=== PATIENT | male | born 1975 | race Caucasian/White ===

== ENCOUNTER 2020-01-28 23:34 | Emergency (ER) | payer SELFPAY ==
--- NOTE | 2020-01-29 00:31 | EDM.PDOCBH ---
ED HPI GENERAL MEDICAL PROBLEM - General Chief Complaint: Behavioral/Psych Stated Complaint: FEET BLISTERS Time Seen by Provider: 01/28/20 23:55 Source of Information: Reports: Patient, Family (Mother, over the phone) History Limitations: Reports: Altered Mental Status (Psychosis) - History of Present Illness INITIAL COMMENTS - FREE TEXT/NARRATIVE: Mr. Archer is a pleasant 44-year-old man with a past medical history significant for untreated presumed schizophrenia, who is now brought to the ED by the police after he created a disturbance at a [employer]. According to both the patient and his mother, whom we spoke to on the phone, he is from [place], [place] (about 440 miles from here). He states that he is homeless, and that he both hitched a ride and hiked here via [employer]. His mother tells us that he was in the [facility] care home after stealing a car, being released around 30 days ago, and that the court instructed him to undergo a psychiatric evaluation within 30 days, but it is unclear that he has done so. She believes that he has been living with a friend. The patient is somewhat agitated, stating that he is psychiatrically, medically , and spiritually "done". He states that his best friend, Rena, was murdered last night, and that he watched his friend's soul sink into the concrete, then watched his body being eaten by a baby alligator. He stated that he has been with his friend spiritually for the last 2 days. He states that the world is going to end soon at [facility]. He denies feeling suicidal or homicidal. During our conversation, the patient's mother called, and reassured him that Rena is fine. She told him that he is sick, and that he needs to get help. The patient acknowledged that he might be crazy, but did not want her to discount what he had seen. The patient states that he was psychiatrically hospitalized about 10 years ago for suicidal ideation, then a second time about 11 months ago, for 2 weeks, at the [facility], in [place], [place]. He states that they attempted to medicate him, but he refused. The patient states that his feet are really sore, otherwise, he denies recent fever, chills, sore throat, ear pain, nasal or sinus congestion, cough, dyspnea , chest pain, palpitations, nausea, vomiting, constipation, diarrhea, abdominal pain, urinary symptoms, recent weight gain or weight loss, recent bloody bowel movements or black bowel movements, recent joint aches, headaches, or rashes. Here in the ED, the patient's initial BP is found to be elevated at 159/91, with tachycardia of 104 bpm, otherwise, he is afebrile, saturating 97% on room air. The patient does not have a PCP or Psychiatrist. - Related Data Allergies Allergy/AdvReac Type Severity Reaction Status Date / Time No Known Allergies Allergy Verified 01/28/20 23:51 Past Medical History Musculoskeletal History: Reports: Fracture (left leg) Psychiatric History: Reports: Schizophrenia (presumed, untreated) - Past Surgical History HEENT Surgical History: Reports: Oral Surgery (wisdom teeth extraction) GI Surgical History: Reports: Appendectomy Musculoskeletal Surgical History: Reports: ORIF (left leg) Dermatological Surgical History: Reports: Skin Graft (bilateral legs) Social & Family History - Tobacco Use Smoking Status *Q: Current Every Day Smoker Years of Tobacco use: 23 Packs/Tins Daily: 0.5 - Alcohol Use Alcohol Use History: Yes Alcohol Use Frequency: Socially (occasionally to excess) - Recreational Drug Use Recreational Drug Use: Yes Drug Use in Last 12 Months: Yes Recreational Drug Type: Reports: Amphetamines (Speed) (last took mid-January 2020), LSD (Acid) (last took around 1994), Methamphetamine (last snorted, smoked Oct 2019), Psilocybin (Mushrooms) (last ate around Sep 2019), Other (see below) ( Last took in excess Oct 2019) - Living Situation & Occupation Living situation: Reports: Single, Other (Homeless) Occupation: Unemployed ED ROS GENERAL - Review of Systems Review Of Systems: Comprehensive ROS is negative, except as noted in HPI. ED EXAM, BEHAVIORAL HEALTH - Physical Exam Exam: See Below Exam Limited By: No Limitations (cooperative with exam) General Appearance: Alert, WD/WN, No Apparent Distress Eye Exam: Bilateral Eye: EOMI, Normal Inspection Ears: Normal External Exam, Hearing Grossly Normal Nose: Normal Inspection Throat/Mouth: Normal Inspection, Normal Lips, Normal Voice, No Airway Compromise Head: Atraumatic, Normocephalic Neck: Normal Inspection, Full Range of Motion Respiratory/Chest: No Respiratory Distress, Lungs Clear, Normal Breath Sounds, No Accessory Muscle Use Cardiovascular: Normal Peripheral Pulses, Regular Rate, Rhythm, No Edema, No Gallop, No JVD, No Murmur, No Rub GI/Abdominal: Normal Bowel Sounds, Soft, Non-Tender, No Organomegaly, No Distention, No Abnormal Bruit, No Mass (Male) Exam: Deferred Rectal (Males) Exam: Deferred Back Exam: Normal Inspection, Full Range of Motion, NT Extremities: Normal Range of Motion, Normal Capillary Refill, Other (2+ pitting pretibial edema on the right, 1+ pitting pretibial edema on the left, but the left leg is scarred with skin grafts. There is hyperpigmentation consistent with chronic venous stasis changes to both legs. There are calluses and blisters to the soles of both feet. The patient's body and extremities feel cold, likely from exposure.) Neurological: Alert, No Motor/Sensory Deficits, Oriented x 3 Psychiatric: Agitated (mild), Visual Hallucinations (seeing friend's soul sink into the concrete, then watch a baby alligator eat his body), Other (Delusions of the world going to end in [facility] soon) Skin Exam: Dry, Intact, No rash, Cool EKG INTERPRETATION EKG Date: 01/29/20 Time: 00:36 Rhythm: NSR Rate (Beats/Min): 78 Page: Normal P-Wave: Present QRS: RBBB (incomplete) ST-T: Normal QT: Normal Comparison: NA - No Prior EKG COURSE, BEHAVIORAL HEALTH COMP - Course Vital Signs: Last Vital Signs Temp 36.3 C 01/28/20 23:47 Pulse 104 H 01/28/20 23:47 Resp 18 01/28/20 23:47 BP 159/91 H 01/28/20 23:47 Pulse Ox 97 01/28/20 23:47 Orders, Labs, Meds: Active Orders 24 hr Category Date Time Status EKG Documentation Completion [RC] STAT Care 01/29/20 00:24 Active Laboratory Tests 01/29/20 01/29/20 01/29/20 Range/Units 00:40 00:40 00:40 WBC 8.43 (4.23-9.07) K/mm3 RBC 5.44 (4.63-6.08) M/mm3 Hgb 15.9 (13.7-17.5) gm/dl Hct 45.9 (40.1-51.0) % MCV 84.4 (79.0-92.2) fl MCH 29.2 (25.7-32.2) pg MCHC 34.6 (32.2-35.5) g/dl RDW Std Deviation 41.7 (35.1-43.9) fL Plt Count 282 (163-337) K/mm3 MPV 9.6 (9.4-12.3) fl Neutrophils % (Manual) 56 (40-60) % Band Neutrophils % 1 (0-10) % Lymphocytes % (Manual) 31 (20-40) % Atypical Lymphs % 0 % Monocytes % (Manual) 10 (2-10) % Eosinophils % (Manual) 1 (0.8-7.0) % Basophils % (Manual) 1 (0.2-1.2) Platelet Estimate Adequate Plt Morphology Comment Normal RBC Morph Comment Normal Sodium 140 (136-145) mEq/L Potassium 3.6 (3.5-5.1) mEq/L Chloride 103 (98-107) mEq/L Carbon Dioxide 27 (21-32) mEq/L Anion Gap 13.6 (5-15) BUN 8 (7-18) mg/dL Creatinine 0.8 (0.7-1.3) mg/dL Est Cr Clr Drug Dosing 120.40 mL/min Estimated GFR (MDRD) > 60 (>60) mL/min BUN/Creatinine Ratio 10.0 L (14-18) Glucose 106 (74-106) mg/dL Calcium 9.0 (8.5-10.1) mg/dL Magnesium 2.0 (1.8-2.4) mg/dl Total Bilirubin 0.8 (0.2-1.0) mg/dL AST 15 (15-37) U/L ALT 30 (16-63) U/L Alkaline Phosphatase 111 (46-116) U/L Total Protein 7.4 (6.4-8.2) g/dl Albumin 3.7 (3.4-5.0) g/dl Globulin 3.7 gm/dL Albumin/Globulin Ratio 1.0 (1-2) TSH 3rd Generation 1.095 (0.358-3.74) uIU/mL Salicylates 1.7 L (2.8-20) mg/dL Urine Opiates Screen (CAJLSB=380) Ur Buprenorphine Scrn (CUTOFF=10) Ur Oxycodone Screen (MBW8XW=364) Urine Methadone Screen (SHW2YM=244) Ur Propoxyphene Screen (YCTVWR=025) Acetaminophen 0 L (10-30) ug/mL Ur Barbiturates Screen (YJMZZP=979) Ur Tricyclics Screen (MKZGFI=299) Ur Phencyclidine Scrn (CUTOFF=25) Ur Amphetamine Screen (QMLDZS=378) U Methamphetamines Scrn (ZFVYPJ=951) U Benzodiazepines Scrn (ISVKGG=954) U Cocaine Metab Screen (JLQIVF=695) U Marijuana (THC) Screen (CUTOFF=50) Ethyl Alcohol 0.00 (0.00) gm% 01/29/20 Range/Units 02:38 WBC (4.23-9.07) K/mm3 RBC (4.63-6.08) M/mm3 Hgb (13.7-17.5) gm/dl Hct (40.1-51.0) % MCV (79.0-92.2) fl MCH (25.7-32.2) pg MCHC (32.2-35.5) g/dl RDW Std Deviation (35.1-43.9) fL Plt Count (163-337) K/mm3 MPV (9.4-12.3) fl Neutrophils % (Manual) (40-60) % Band Neutrophils % (0-10) % Lymphocytes % (Manual) (20-40) % Atypical Lymphs % % Monocytes % (Manual) (2-10) % Eosinophils % (Manual) (0.8-7.0) % Basophils % (Manual) (0.2-1.2) Platelet Estimate Plt Morphology Comment RBC Morph Comment Sodium (136-145) mEq/L Potassium (3.5-5.1) mEq/L Chloride (98-107) mEq/L Carbon Dioxide (21-32) mEq/L Anion Gap (5-15) BUN (7-18) mg/dL Creatinine (0.7-1.3) mg/dL Est Cr Clr Drug Dosing mL/min Estimated GFR (MDRD) (>60) mL/min BUN/Creatinine Ratio (14-18) Glucose (74-106) mg/dL Calcium (8.5-10.1) mg/dL Magnesium (1.8-2.4) mg/dl Total Bilirubin (0.2-1.0) mg/dL AST (15-37) U/L ALT (16-63) U/L Alkaline Phosphatase (46-116) U/L Total Protein (6.4-8.2) g/dl Albumin (3.4-5.0) g/dl Globulin gm/dL Albumin/Globulin Ratio (1-2) TSH 3rd Generation (0.358-3.74) uIU/mL Salicylates (2.8-20) mg/dL Urine Opiates Screen Negative (FFMTFX=427) Ur Buprenorphine Scrn Negative (CUTOFF=10) Ur Oxycodone Screen Negative (YTD9XE=043) Urine Methadone Screen Negative (KNG3RB=026) Ur Propoxyphene Screen Negative (CYZKWI=372) Acetaminophen (10-30) ug/mL Ur Barbiturates Screen Negative (PBXBAQ=123) Ur Tricyclics Screen Negative (IYMVGB=964) Ur Phencyclidine Scrn Negative (CUTOFF=25) Ur Amphetamine Screen Presumptive positive H (ZFILOR=302) U Methamphetamines Scrn Presumptive positive H (IPCATN=870) U Benzodiazepines Scrn Negative (GGYTAV=568) U Cocaine Metab Screen Negative (PSQCJT=454) U Marijuana (THC) Screen Negative (CUTOFF=50) Ethyl Alcohol (0.00) gm% Medical Clearance: 01/29/20 00:26 As above, the patient appears to be acutely psychotic with delusions and visual hallucinations. He is not suicidal or homicidal, therefore an emergency psychiatric hospitalization is probably not necessary, however, I would like to have marriage and family social worker take a look at him in the morning. I have ordered a work- up that includes blood work, a urine drug screen, and an ECG. In the meantime, we will find something for the patient to eat. 01/29/20 02:27 The patient's CBC is unremarkable. His CMP is unremarkable. His magnesium level is within normal limits at 2.0. His TSH is within normal limits at 1.095. His acetaminophen level is 0. His salicylate level is within normal limits at 1.7. His EtOH level is 0.00. The patient has not yet provided a urine sample for the urine drug screen. 01/29/20 03:35 The patient's urine drug screen is positive for methamphetamine/amphetamine, and is otherwise negative. This raises the possibility that the patient's psychosis is due to methamphetamine abuse, as opposed to schizophrenia, since long-term stimulant abuse can produce a psychosis indistinguishable from schizophrenia, the only difference being that psychosis due to stimulant abuse resolves when the stimulant is discontinued, whereas the psychosis due to schizophrenia persists. 01/29/20 06:11 The patient has been sleeping peacefully. I woke him up and discussed his test results. He acknowledged that he did some Adderall and methamphetamine a few days ago. He stated, however, that he has had visions even when he has been off methamphetamine. I explained to him that if that is true, then it is possible that he has schizophrenia, and if so, he should see a psychiatrist to begin treatment. I explained that a psychiatrist, however, is not going to want to start treatment if he is still on methamphetamine. The patient expressed understanding. For today's purposes, the patient will rest a little longer, before being discharged at 07:00. I will refer him to [facility]. Departure - Departure Time of Disposition: 06:13 Disposition: Home, Self-Care 01 Condition: Good Clinical Impression: Psychosis, Methamphetamine abuse - Discharge Information *PRESCRIPTION DRUG MONITORING PROGRAM REVIEWED*: Not Applicable *COPY OF PRESCRIPTION DRUG MONITORING REPORT IN PATIENT TARAN: Not Applicable Referrals: PCP,Not In Area [Primary Care Provider] - Forms: ED Department Discharge Additional Instructions: You were seen in the emergency room after being dropped off by the police after creating a disturbance at a [employer]. Work-up in the ER included blood work, a urine drug screen, and an ECG. Your urine drug screen returned positive for both methamphetamine and amphetamine. The remainder of your work-up was unremarkable. Based on your history, physical exam, and ER tests, your hallucinations and abnormal thoughts could be due to schizophrenia, but could also be due to methamphetamine and/or Adderall abuse. We strongly recommend that you stop using methamphetamine and Adderall. We recommend that you get professional help to do so, at [facility]: [address] [place] [phone] If any other problems, please do not hesitate to return to the ER. Sepsis Event Note - Evaluation Sepsis Screening Result: No Definite Risk - Focused Exam Vital Signs: Vital Signs Temp Pulse Resp BP Pulse Ox 01/28/20 23:47 36.3 C 104 H 18 159/91 H 97 Date Exam was Performed: 01/29/20 Time Exam was Performed: 06:11 - My Orders Last 24 Hours: My Active Orders 01/29/20 00:24 EKG Documentation Completion [RC] STAT - Assessment/Plan Last 24 Hours: My Active Orders 01/29/20 00:24 EKG Documentation Completion [RC] STAT
[2020-01-29 01:17] LABS: ACETAMINOPHEN 0 ug/mL (10-30)
== END 2020-01-29 07:00 | disposition home or self-care (01) ==
LOC: JD.ED 23:34
DX: F29 Unspecified psychosis not due to a substance or known physiological condition (principal); F15.10 Other stimulant abuse, uncomplicated; F17.210 Nicotine dependence, cigarettes, uncomplicated
CPT/HCPCS: 36415; 80053; 80306; 80307; 83735; 84443; 85007; 85027; 93005; 93010; 99283; 99285-25